=== PATIENT | male | born 1965 | race African-American/Black ===

== ENCOUNTER 2017-04-14 07:08 | Observation (INO) | payer MEDICAID ==
[~2017-04-14] VITALS: Ht 180.3 cm; Wt 64.3 kg
[~2017-04-14 07:08] MED LIST: BENZ2AMP4 PO; HALO1TAB PO
[2017-04-14 08:16] LABS: ASPARTATE AMINO TRANSFERASE 59 U/L (15-37); BLOOD UREA NITROGEN 17 mg/dL (7-18)
[2017-04-14 08:20] LABS: ACETAMINOPHEN < 2 mcg/mL (10-30)
[2017-04-14] MEDS ORDERED: ZIPRASIDONE 20MG CAPSULE PO ONE (09:30)
[2017-04-14] MEDS ORDERED: ZIPRASIDONE 20MG CAPSULE ONE (11:02)
[2017-04-14 18:05] LABS: DAU SCREEN DISCLAIMER
[2017-04-14] MEDS ORDERED: BENZTROPINE 1 MG TABLET PO SCH (21:00)
[2017-04-14] MEDS ORDERED: HALOPERIDOL 5 MG TABLET PO SCH (21:00)
[2017-04-14] MEDS ORDERED: DOCUSATE 100 MG CAPSULE PO PRN (22:00)
[2017-04-14] MEDS ORDERED: ACETAMINOPHEN 325 MG TABLET PO PRN (22:00)
[2017-04-14] MEDS ORDERED: POLYETHYLENE GLYCOL 17 GM PACKET PO PRN (22:00)
[2017-04-14 22:28] VITALS: BP 144/85
[2017-04-14 23:40] LABS: HIV 1&2 ANTIBODY SCREEN Nonreactive (Nonreactive); HIV-1 p24 ANTIGEN Nonreactive (Nonreactive)
[2017-04-15 06:24] VITALS: BP 144/85
[2017-04-15 08:30] VITALS: BP 129/83
[2017-04-15] MEDS ORDERED: LORazepam 1MG TABLET PO PRN (13:00)
[2017-04-15] MEDS ORDERED: HALOPERIDOL 5 MG TABLET PO PRN (13:00)
[2017-04-15 19:49] VITALS: BP 120/70
[2017-04-16 08:06] VITALS: BP 115/81
[2017-04-16 13:35] LABS: HEP B SURF. AB 187.3 mIU/mL (0.0-10.0)
[2017-04-16 14:12] LABS: HEPATITIS C VIRUS ANTIBODY Nonreactive (Nonreactive)
[2017-04-16 14:14] LABS: HEPATITIS A ANTIBODY TOTAL Reactive (Nonreactive)
== END 2017-04-16 15:46 ==
LOC: ED 08:45 → INTOOBSV 20:57 → EDIP 20:57 → 3E 22:00
PROVIDERS: ADMIT Internal Medicine; ATTEND Internal Medicine
DX: F20.0 Paranoid schizophrenia (principal); F22 Delusional disorders; F12.10 Cannabis abuse, uncomplicated; Z91.14 Patient's other noncompliance with medication regimen; Z59.0 Homelessness
CPT/HCPCS: 36415; 80053; 80307; 80329; 81003; 85025; 86480; 86703; 86704; 86706; 86708; 87899; 99285; G0378; 86705; 86709; 86803; 87340; G0435; G0480